=== PATIENT | male | born 1955 | race Two or more races ===

== ENCOUNTER 2022-04-19 05:00 | Day surgery (SDC) | payer OTHER ==
[~2022-04-19] VITALS: Ht 165.1 cm; Wt 68.0 kg
[~2022-04-19 05:00] MED LIST: COZAAR100 MG PO; DORZOLAMIDE 2%10 ML OP; FENOFIBRIC; INTESTINEX680 M1 PO; PEPCID AC20 MG PO; SIMVASTATIN20 MG PO; TAMS0.4C PO
[2022-04-19] MEDS ORDERED: PERCOCET 5-3251 EACH PO (10:51)
[2022-04-19] MEDS ORDERED: NEURONTIN300 MG PO (10:51)
[2022-04-19] MEDS ORDERED: DERMOPLAST PAIN78 GM TOP (10:51)
== END 2022-04-19 16:20 | disposition home or self-care (01) ==
LOC: CIR.AMB 05:00
PROVIDERS: ATTEND Surgery
DX: K64.8 Other hemorrhoids (principal); K64.4 Residual hemorrhoidal skin tags; K62.3 Rectal prolapse; K62.5 Hemorrhage of anus and rectum; Z20.822 Contact with and (suspected) exposure to COVID-19